=== PATIENT | male | born 1990 | race Hispanic/Latino ===

== ENCOUNTER 2022-10-18 15:16 | Emergency (ER) | payer SELFPAY | END 2022-10-18 19:36 | disposition left against medical advice (07) | LOC: CSHERS 15:16 | DX: F10.10 Alcohol abuse, uncomplicated (principal); Z53.29 Procedure and treatment not carried out because of patient's decision for other reasons | CPT/HCPCS: 36415; 80307; 99282 ==

== ENCOUNTER 2022-10-18 20:46 | Emergency (ER) | payer SELFPAY | END 2022-10-19 03:28 | disposition home or self-care (01) | LOC: CSHERS 20:46 | DX: F10.220 Alcohol dependence with intoxication, uncomplicated (principal); F17.210 Nicotine dependence, cigarettes, uncomplicated; Y90.7 Blood alcohol level of 200-239 mg/100 ml | CPT/HCPCS: 36415; 80307; 99284 ==